=== PATIENT | female | born 2005 | race Caucasian/White ===

== ENCOUNTER 2024-10-03 18:18 | Emergency (ER) | payer BC, SELFPAY ==
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
--- OUTSIDE RECORDS SUMMARY | 2024-10-03 18:20 | XMS_ITS | Encounter Summary ---
Author Organization [facility] Address [address] [place] [address] Phone Care Team Providers Care Air Bag Buffer Name Role Phone Ryne Quigley MD Primary Care Provider Encounter Details Date Type Department Care Team (Late st Contact Info) Description 01/25/2017 Orders Only [facility] [address] [place] [address] Ryne Quigley MD [address] [address] Right wrist injury, initial encounter (Primary Dx) Social History Tobacco Use Types Packs/Day Years Used Date Smoking Tobacco: Never Assessed Comments Unknown Sex and Gender Information Value Date Recorded Sex Assigned at Not on file Legal Sex Female 8:10 AM COUNTER WEIGHER Gender Identity Not on file Sexual Orientation Not on file documented as of this encounter Plan of Treatment Not on file documented as of this encounter Results * XR Wrist Right 3+ View (01/25/2017 3:50 PM CDT) Anatomical Region Laterality Modality Upper Extremities, Wrist Right Compute d Radiography Narrative 01/27/2017 2:53 PM CDT DIGITAL RIGHT WRIST Examination of the right wrist demonstrates normal alignment of the radiocarpal and carpal-metacarpal joints. Development is normal. There is no radiographic evidence of opaque foreign body, erosive process fracture, destructive process or significant arthritic changes. If clinical symptoms persist or chirinos, then follow-up x-ray in 7-10 days is suggested to exclude an occult fracture. Epiphyseal plates are grossly intact. IMPRESSION No radiographic evidence or bone or joint disease. us Ryne Quigley MD IMG XR PROCEDURES Final Resu lt documented in this encounter Visit Diagnoses Diagnosis Right wrist injury, initial encounter- Primary Right wrist injury, initial encounter documented in this encounter Additional Health Concerns Infection Onset Date Last Indicated Resolved Time COVID: Suspected 07/16/2024 07/16/2024 07/16/2024 12:53 PM COUNTER WEIGHER COVID: Suspected 08/26/2024 08/26/2024 08/26/2024 12:39 PM COUNTER WEIGHER Influenza, adult 08/26/2024 08/26/2024 09/02/2024 3:05 AM CDT documented as of this encounter Care Teams Air Bag Buffer Relationship Specialty Start Date End Date Ryne Quigley MD [address] [place] [id number] PCP - General 09/18/16 documented as of this encounter
--- OUTSIDE RECORDS SUMMARY | 2024-10-03 18:20 | XMS_ITS | Encounter Summary ---
Author Organization [facility] Address [address] [place] [address] Care Team Providers Care Electrical Appliance Repairer Name Role Phone Ryne Quigley MD Primary Care Provider Encounter Details Date Type Department Care Team (Late st Contact Info) Description 07/17/[address] [address] Yudy Sweet RN Social History Tobacco Use Types Packs/Day Years Used Date Smoking Tobacco: Never Smokeless Tobacco: Never Alcohol Use Standard Drinks/Week Comments No 0 (1 standard drink = 0.6 oz pur e alcohol) Comments No Sex and Gender Information Value Date Recorded Sex Assigned at Not on file Legal Sex Female 8:10 AM ENGRAVER PICTURE Gender Identity Not on file Sexual Orientation Not on file Occupation Industry Job Start Date Job End Date Student - [employer]. Not on file Not o n file Not on file documented as of this encounter Plan of Treatment Not on file documented as of this encounter Visit Diagnoses Not on filedocumented in this encounter Additional Health Concerns Infection Onset Date Last Indicated Resolved Time COVID: Suspected 07/16/2024 07/16/2024 07/16/2024 12:53 PM ENGRAVER PICTURE COVID: Suspected 08/26/2024 08/26/2024 08/26/2024 12:39 PM ENGRAVER PICTURE Influenza, adult 08/26/2024 08/26/2024 09/02/2024 3:05 AM CDT documented as of this encounter Care Teams Electrical Appliance Repairer Relationship Specialty Start Date End Date Ryne Quigley MD [address] [place] [address] PCP - General 09/18/16 documented as of this encounter
--- OUTSIDE RECORDS SUMMARY | 2024-10-03 18:20 | XMS_ITS | Clinical Summary ---
Author Organization [facility] [employer] Address [address] [place] [address] Care Team Providers Care Drapery Hemmer Automatic Name Role Phone Ryne Quigley MD Primary Care Provider [phone] Source Comments [facility],non-owned Affiliates and Associated Physician Practices is amultiple site organization consisting of ambulatory clinics and hospital sitesin [place], [place], [place] and [place]. This disclosure is being madepursuant to the Care Everywhere program and may not contain all information available regarding this patient. Last updated 18.[facility] [employer] Allergies Active Allergy Reactions Criticality Noted Date Comments Amoxicillin 06/05/2016 Penicillins Urticaria Medium 06/05/2016 Medications * This document contains information received from the source organization and may not represent a complete record from that organization. * Be aware that medications may not be up to date on this document. Alwaysverify current medications with the patient. Norethin Ryan-Eth Estrad-FE (BLISOVI 24 FE PO) Active Family History Relation Name Status Comments Mother Alive Social History Tobacco Use Types Packs/Day Years Used Date Smoking Tobacco: Passive Smo ke Exposure - Never Smoker Smokeless Tobacco: Never Comments No Sex and Gender Information Value Date Recorded Sex Assigned at Not on file Legal Sex Female 8:12 AM CLINICAL APPEALS RN Gender Identity Not on file Sexual Orientation Not on file Last Filed Vital Signs Vital Sign Reading Time Taken Comments Blood Pressure 110/70 07/29/2018 4:50 PM CLINICAL APPEALS RN Pulse 107 07/29/2018 4:50 PM CLINICAL APPEALS RN Temperature 37.2 C (98.9 F) 07/29/2018 4:50 PM CLINICAL APPEALS RN Respiratory Rate 16 07/29/2018 4:50 PM CLINICAL APPEALS RN Oxygen Saturation 97% 07/29/2018 4:50 PM CLINICAL APPEALS RN Inhaled Oxygen Concentration - - Weight 56.7 kg (125 lb) 07/29/2018 4:50 PM CLINICAL APPEALS RN Height 162.6 cm (5' 4 ) 07/29/2018 4:50 PM CLINICAL APPEALS RN Body Mass Index 21.46 07/29/2018 4:50 PM CLINICAL APPEALS RN Plan of Treatment Health Maintenance Due Date Last Done Comments HIV SCREENING 2019 HPV VACCINE (1 - 3-dose series) 2019 CHLAMYDIA/GONORRHEA SCREENING 2020 MENINGOCOCCAL (Group B) VACCINE SHARED DECISION-MAKING (1 of 2 - Standard) 2020 HEPATITIS C SCREENING 08/09/2022 DTAP/TDAP/TD VACCINES (1 - Tdap) 2023 HEPATITIS B VACCINE (1 of 3 - 19+ 3-dose series) 2023 COVID-19 VACCINE (1 - 2023-2 5 season) 2024 DEPRESSION SCREENING 06/21/2024 INFLUENZA VACCINE (Season Ended) 2025 04/17/2016, 03/28/2012, 03/30/2011 ZOSTER VACCINE (1 of 2) 2054 HIB VACCINE Aged Out No longer eligi ble based on patient's age to complete this topic MENINGOCOCCAL GROUPS A/C/Y/W VACCINE Aged Out No longer eligible b ased on patient's age to complete this topic PNEUMOCOCCAL VACCINE Aged Out No long er eligible based on patient's age to complete this topic Insurance [employer] LATOSHA Care Teams Drapery Hemmer Automatic Relationship Specialty Start Date End Date Ryne Quigley MD [address] [place] [address] PCP - General Pediatrics 06/05/16
--- OUTSIDE RECORDS SUMMARY | 2024-10-03 18:20 | XMS_ITS | Encounter Summary ---
Author Organization [facility] Address [address] [place] [address] Phone Care Team Providers Care Microcomputer Support Specialist Name Role Phone Ryne Quigley MD Primary Care Provider [phone] Encounter Details Date Type Department Care Team (Late st Contact Info) Description 05/07/2020 Orders Only [facility] [address] [place] [address] Scanning, Provider Social History Tobacco Use Types Packs/Day Years Used Date Smoking Tobacco: Never Smokeless Tobacco: Never Alcohol Use Standard Drinks/Week Comments No 0 (1 standard drink = 0.6 oz pur e alcohol) Comments No Sex and Gender Information Value Date Recorded Sex Assigned at Not on file Legal Sex Female 8:10 AM REMOTE SENSING ENGINEER Gender Identity Not on file Sexual Orientation Not on file Occupation Industry Job Start Date Job End Date Student - [employer]. Not on file Not o n file Not on file documented as of this encounter Plan of Treatment Not on file documented as of this encounter Procedures Procedure Name Priority Date/Time Associated Diagnosis Comments SCAN - LABS 05/07/2020 documented in this encounter Results * SCAN - LABS (05/07/2020) us Provider Scanning Final Result documented in this encounter Visit Diagnoses Not on filedocumented in this encounter Additional Health Concerns Infection Onset Date Last Indicated Resolved Time COVID: Suspected 07/16/2024 07/16/2024 07/16/2024 12:53 PM REMOTE SENSING ENGINEER COVID: Suspected 08/26/2024 08/26/2024 08/26/2024 12:39 PM REMOTE SENSING ENGINEER Influenza, adult 08/26/2024 08/26/2024 09/02/2024 3:05 AM CDT documented as of this encounter Care Teams Microcomputer Support Specialist Relationship Specialty Start Date End Date Ryne Quigley MD [address] [place] [address] PCP - General 09/18/16 documented as of this encounter
--- OUTSIDE RECORDS SUMMARY | 2024-10-03 18:20 | XMS_ITS | Referral Summary ---
Author Organization [facility] [employer] Address [address] [place] [address] Phone Care Team Providers Care Kelp Cutter Name Role Phone Ryne Quigley MD Primary Care Provider [phone] Encounters Date Type Department Care Team Description 08/26/2024 12:15 PM PIPE LAYER HELPER Office Visit [facility] Medical [facility] at [address] [place] [address] Saranya Ervin, NANDA Influenza A (Primary Dx) 07/16/2024 12:30 PM PIPE LAYER HELPER Office Visit [facility] Care at [address] [place] [address] Saranya Ervin, REGIONAL OWNER OPERATOR TRUCK DRIVER Viral URI with cough (Primary Dx) from Last 3 Months Allergies Active Allergy Reactions Criticality Noted Date [...] ordered. Assessment & Plan (07/16/2019 7:25 AM PIPE LAYER HELPER): Patient endorses 20lbs of unitentional weight loss [...] on left ; Rx IV then cefixime. 01-03-20 frequency without pain but blood on toilet paper; bright red genitalia on exam; dip moderate blood; sent for UA and culture and started Keflex: grew out periurethtral apnkaj . 01-30-20 ANGELITO no more abnormal focus on the left; just bladder wall thickening. 02-05-20 frequency, burning & 10,000 to 100,000 col/ml E coli senisitive to everything Keflex Assessment & Plan (07/15/2019 9:40 PM PIPE LAYER HELPER): 13yo otherwise healthy girl here with 2d [...] pelvic US if high concern for TOA Immunizations Immunization Administration Dates Next Due DTaP 5 Pertussis 12/27/2009, 6,02/20/2005,12/12,2004 HPV, Quadrivalent 03/24/2016,01/17/2016 HPV9 07/28/2016 Hep B, Adolescent or Pediatric 02/20/2005,2004,2004 Hib (HbOC) 11/12/2005, 5,2004,10/15 IPV 12/27/2009, 6,2004,10/15 Influenza, Trivalent, IM (MDV) 03/28/2012 Influenza, Trivalent, Preser vative Free, Intramuscular 04/17/2016,03/30/2011 MMR 12/27/2009,08/19/2005 Meningococcal Conjugate (Menveo) 11/28/2021 Meningococcal MCV4P (Menactra) 01/17/2016 Pneumococcal Conjugate 7-Valent 11/13/19 06,02/20/2005,2004,10/15 Tdap 01/17/2016 Varicella 12/27/2009,08/19/2005 Social History Tobacco Use Types Packs/Day Years Used Date Smoking Tobacco: Never Smokeless Tobacco: Never Tobacco Cessation:Counseling Given: Not Answered Alcohol Use Standard Drinks/Week Comments No 0 (1 standard drink = 0.6 oz pur e alcohol) Comments No Sex and Gender Information Value Date Recorded Sex Assigned at Not on file Legal Sex Female 8:10 AM PIPE LAYER HELPER Gender Identity Not on file Sexual Orientation Not on file Occupation Industry Job Start Date Job End Date [employer] Not on file Not on file Not on file Last Filed Vital Signs Vital Sign Reading Time Taken Comments Blood Pressure 114/62 08/26/2024 12:10 PM PIPE LAYER HELPER Pulse 99 08/26/2024 12:10 PM PIPE LAYER HELPER Temperature 37.3 C (99.2 F) 08/26/2024 12:10 PM PIPE LAYER HELPER Respiratory Rate 17 08/26/2024 12:10 PM PIPE LAYER HELPER Oxygen Saturation 99% 08/26/2024 12:10 PM PIPE LAYER HELPER Inhaled Oxygen Concentration - - Weight 65.3 kg (144 lb) 08/26/2024 12:10 PM PIPE LAYER HELPER Height 166.4 cm (5' 5.5 ) 08/26/2024 12:10 PM CS T Body Mass Index 23.6 08/26/2024 12:10 PM PIPE LAYER HELPER Plan of Treatment Not on file Procedures Procedure Name Priority Date/Time Associated Diagnosis Comments POCT RAPID STREP Routine 08/26/2024 12:3 8 PM PIPE LAYER HELPER Influenza A POC INFLUENZA A/B, COVID-19 ANTIGEN Routine 08/26/2024 12:38 PM PIPE LAYER HELPER Influenza A POC INFLUENZA A/B, COVID-19 ANTIGEN Routine 07/16/2024 12:52 PM PIPE LAYER HELPER Viral URI with cough N. GONORRHOEAE/C. TRACHOMATIS AMPLIFICATION Routine 02/15/2023 5:30 AM CDT Screening examination for venereal disease from Last 3 Months or Most Recently Relevant to Health Maintenance Results * (ABNORMAL) POC Influenza A/B, COVID-19 antigen (08/26/2024 12:38 PM PIPE LAYER HELPER) Pathologist [facility] Influenza A Ag, POC Positive(A) Negative [facility] Influenza B Ag, POC Negative Negative [facility] COVID-19 Ag POC Presumptive Negative Presumptive Negative, Invalid [facility] Nasal 08/26/2024 12:3 8 PM PIPE LAYER HELPER us Saranya Ervin REGIONAL OWNER OPERATOR TRUCK DRIVER POINT OF CARE TEST ORDERABLES Final Result Performing Organization Address [facility] de Phone Number [facility] [address] [place] [address] * POCT rapid strep A (08/26/2024 12:38 PM PIPE LAYER HELPER) [facility] Rapid Strep A, POC Negative Negative Swab 08/26/2024 12:3 8 PM PIPE LAYER HELPER us Saranya Ervin REGIONAL OWNER OPERATOR TRUCK DRIVER POINT OF CARE TEST ORDERABLES Final Result * POC Influenza A/B, COVID-19 antigen (07/16/2024 12:52 PM PIPE LAYER HELPER) Influenza A Ag, POC Negative Negative [facility] Influenza B Ag, POC Negative Negative [facility] COVID-19 Ag POC Presumptive Negative Presumptive Negative, Invalid [facility] Nasal 07/16/2024 12:5 2 PM PIPE LAYER HELPER us Saranya Ervin REGIONAL OWNER OPERATOR TRUCK DRIVER POINT OF CARE TEST ORDERABLES Final Result Performing Organization Address [facility] Co de Phone Number [facility] [address] [place] [address], [facility] * N. gonorrhoeae/C. trachomatis Amplification Urine (02/15/2023 5:30 AM CDT) C. trachomatis source Urine CERNER C. trachomatis RNA Negative Negative [facility] Comment: ADDITIONAL INFORMATION This report is intended for use in clinical monitoring and management of patients. It is not intended for use in medical-legal applications. N. gonorrhoeae source Urine CERNER N. gonorrhoeae RNA Negative Negative [facility] Comment: ADDITIONAL INFORMATION This report is intended for use in clinical monitoring and management of patients. It is not intended for use in medical-legal applications. Test Performed by: [facility] [place] [address] [employer] Representatives: Tom Piedra M.D. Ph.D.; IA# [id number] Urine (None) 02/15/2023 5:30 AM CDT 02/15/2023 6:31 PM CDT Ev Gary MD LAB MICROBIOLOGY - NERNJ ORDERABLES Final Result Performing Organization Address City/[facility]/ZIP Co de Phone Number MADHU [address] [address]redondo Department of Laboratories [place] [address] from Last 3 Months or Most Recently Relevant to Health Maintenance Insurance BLUE [facility] CHOICE OOS [facility] OOS [employer] [facility] ANTHEM ACCESS ANTHEM ACCESS BLUE ACCESS OOS ANTHEM ACCESS ANTHEM ACCESS Advance Directives For more information, please contact: [phone] * Full Code (Latest Code Status on File) Date Activated Date Inactivated Comments 07/15/2019 6:27 PM 07/17/2019 7:31 PM Care Teams Kelp Cutter Relationship Specialty Start Date End Date Ryne Quigley MD [address] [place], [place] [id number] PCP - General 09/18/16
[2024-10-03 18:25] VITALS: BP 134/76; PULSE 82; RESP 20; TEMP 36.5; O2SAT 98
--- NOTE | 2024-10-03 19:06 | ED.SKABFB ---
HPI - Skin/Abscess/Foreign Bdy General Chief complaint: Skin/Abscess/Foreign Body Stated complaint: poss tick in left leg Time Seen by Provider: 10/03/24 19:06 Source: patient, family, RN notes reviewed and old records reviewed Mode of arrival: ambulatory Limitations: no limitations History of Present Illness HPI narrative: 19 year old female with complaints of tick bite to the area behind her left knee noticed today. She reports that she thought she had a scab on the backe of her left knee last night but noted the tick today. Mother reports that she tried to pull it out but part is remaining in the area. Patient reports no fevers or any body aches. MD complaint: other (tick bite) Onset (ago): day(s) (yesterday evening thought was scab then noted tick today) Location: LLE (behind knee) Severity scale (1-10): 1 Quality: aching Treatments prior to arrival: other (attempted to pull out part remains) Related Data Allergies Allergy/AdvReac Type Severity Reaction Status Date / Time Penicillins Allergy Mild Rash Verified 10/03/24 18:32 amoxicillin Allergy Unknown Rash Verified 10/03/24 18:32 Review of Systems Review of Systems: CONSTITUTIONAL: Denies fever, chills, or sweats. CARDIOVASCULAR: Denies chest pain, palpitations, or edema. RESPIRATORY: Denies cough or dyspnea. SKIN: Reports portion of tick remaining in the back of her left knee with some redness and swelling of area MUSCULOSKELETAL: Denies joint pain or myalgia. NEUROLOGIC: Denies headache, numbness, or weakness. All systems reviewed & are unremarkable except as noted in HPI and below PMFSH Past Medical History Medical History (Updated 10/05/24 @ 12:28 by Sarahi Vázquez NP) Pneumonia as Social History Social History (Updated 10/05/24 @ 12:18 by Sarahi Vázquez NP) Living arrangements: with family Gender identity (if verbalized by the patient): Female Comments At time of signature, agree with nursing past medical, surgical, social and family history. There is no relevant family history pertinent to the presenting complaint Exam Narrative: GENERAL: Well-appearing, well-nourished, and in no acute distress. HEAD: Normocephalic, atraumatic. EYES: PERRLA, conjunctivae clear, and EOMI. ENT: Mucous membranes moist. Oropharynx without edema, erythema or lesions. NECK: Supple. No lymphadenopathy CHEST: Clear to auscultation. No respiratory distress.SAO2 98% on room air HEART: Regular rate and rhythm. SKIN: Warm, dry.? small red area where imbedded tick removed 0.1cm area, no drainage see procedure note NEURO:? Alert and oriented x3. PSYCH: Normal mood and affect Course Course Emergency Course: Patient is aware of diagnosis, understands and agrees to treatment plan.? Anticipatory guidance given.? Patient agrees to follow-up as directed and is aware of reasons to seek care at the emergency department. Portions of this record may have been created with voice recognition software Level of Care: Express Care Visit Vital Signs Vital signs: Vital Signs Temperature 36.5 C 10/03/24 18:25 Pulse Rate 82 10/03/24 18:25 Respiratory Rate 20 10/03/24 18:25 Blood Pressure 134/76 10/03/24 18:25 Pulse Oximetry 98 10/03/24 18:25 Oxygen Delivery Room Air 10/03/24 18:25 Temperature 36.5 C 10/03/24 18:25 Pulse Rate 82 10/03/24 18:25 Respiratory Rate 20 10/03/24 18:25 Blood Pressure 134/76 10/03/24 18:25 Pulse Oximetry 98 10/03/24 18:25 Oxygen Delivery Room Air 10/03/24 18:25 Reviewed Procedures Other Procedure Procedure 1: Other Procedure: 1919 area behind left knee cleansed with Hibiclens wipes and using sterile needle and sterile tweezer remaining part of tick removed from area, cleansed again with Hibiclens wipe and band-aide applied to site with post care reviewed and anticipatory guidance. MDM - Skin/Abscess/Foreign Bdy MDM Narrative Medical decision making narrative: Does not appear at this time to be erythema multiforme, bullous, SJS, TEN; no evidence at this time to suggest RMSF, endocarditis or Lyme disease; patient looks well, nontoxic and is tolerating oral intake; no neurologic signs or symptoms; no headache, photophobia or neck pain; afebrile; appropriate for initial outpatient treatment; discussed the importance of follow-up, patient agrees; question, viral exanthema, contact dermatitis, allergic dermatitis, eczema, urticaria. No soft palate or uvula edema, no tongue, lip edema or other mucosal involvement, no respiratory compromise, no stridor, no wheezing, no wheezing, no history of syncope, no hypotension, no nausea, vomiting, or diarrhea.? Instructed patient to go to nearest ER immediately for any worsening symptoms including but not limited to: fever, spreading rash, pain, sore throat, headache, dizziness, chest pain, trouble breathing, or any symptoms concerning to the patient. Differential Diagnosis Differential diagnosis: Likely insect bites (tick, imbedded tick, removal of remaining portion of tick) and contact dermatitis Medical Records Attestation: I reviewed the patient's medical records. Critical Care Time Critical Care Time Critical Care Time: No Discharge Plan Discharge Clinical Impression: Tick bite with subsequent removal of tick Tick bite Qualifiers: Encounter type: initial encounter Site of tick bite: thigh Laterality: left Qualified Code(s): S70.362A - Insect bite (nonvenomous), left thigh, initial encounter; W57.XXXA - Bitten or stung by nonvenomous insect and other nonvenomous arthropods, initial encounter Patient Disposition: Home Condition: Stable Instructions: Antibiotic Form, Tick Bite (ED) Additional Instructions: Cleanse site with alcohol or or Hibiclens soap twice daily watch for increasing infection--redness, swelling, drainage Tylenol or ibuprofen for any fever follow up with PCP in 7-10 days for a wound check recheck if develop fever, chills, increasing symptom Go to the ER if your symptoms become worse of if ANY new symptoms develop Doxycycline 200 mg 1 time prophylactic dose Watch for any fever muscle hagen or muscle aches or bulls eye rash If your symptoms persist, change or worsen significantly before you can contact your personal physician then please, without delay, go to the emergency department for further evaluation. Follow-up with PCP in 7-10 days or sooner if needed Follow up with PCP soon in regards to your blood pressure which is elevated above threshold for referral. Blood pressure above 120/80 may indicate pre-hypertension. Patient Language: Belgian Prescriptions: New doxycycline monohydrate 100 mg capsule 200 mg PO DAILY Qty: 2 0RF Rx Instructions: 1 time dose Follow-up/Referrals: Sai Hernandez MD [Primary Care Provider] - Time of Disposition: 19:43 Quality Lenore Coma Scale Eyes: Open Verbal: Oriented and Alert Motor: Follows Commands [place] Coma Total Score: 15
== END 2024-10-03 19:47 | disposition home or self-care (01) ==
PROVIDERS: Emergency Provider Registered Nurse; PCP Family Medicine
DX: S70.362A Insect bite (nonvenomous), left thigh, initial encounter (principal); W57.XXXA Bitten or stung by nonvenomous insect and other nonvenomous arthropods, initial encounter
CPT/HCPCS: 99203; G0463

== ENCOUNTER 2025-02-20 15:17 | Emergency (ER) | payer BC, SELFPAY ==
--- OUTSIDE RECORDS SUMMARY | 2025-02-20 15:25 | XMS_ITS | Clinical Summary ---
Author Organization [facility] [email or web address] Address [address] [place] [address] Care Team Providers Care Recorder Of Deeds Name Role Phone Ryne Quigley MD Primary Care Provider Source Comments [facility],non-owned Affiliates and Associated Physician Practices is amultiple site organization consisting of ambulatory clinics and hospital sitesin [place], [place], [place] and [place]. This disclosure is being madepursuant to the Care Everywhere program and may not contain all information available regarding this patient. Last updated 18.[facility] [email or web address] Allergies Active Allergy Reactions Criticality Noted Date [...] on file Legal Sex Female 8:12 AM MEDICAL BILL PROCESSOR Gender Identity Not on file Sexual Orientation Not on file Last Filed Vital Signs Vital Sign Reading Time Taken Comments Blood Pressure 110/70 07/29/2018 4:50 PM MEDICAL BILL PROCESSOR Pulse 107 07/29/2018 4:50 PM MEDICAL BILL PROCESSOR Temperature 37.2 C (98.9 F) 07/29/2018 4:50 PM MEDICAL BILL PROCESSOR Respiratory Rate 16 07/29/2018 4:50 PM MEDICAL BILL PROCESSOR Oxygen Saturation 97% 07/29/2018 4:50 PM MEDICAL BILL PROCESSOR Inhaled Oxygen Concentration - - Weight 56.7 kg (125 lb) 07/29/2018 4:50 PM MEDICAL BILL PROCESSOR Height 162.6 cm (5' 4) 07/29/2018 4:50 PM MEDICAL BILL PROCESSOR Body Mass Index 21.46 07/29/2018 4:50 PM MEDICAL BILL PROCESSOR Plan of Treatment Health Maintenance Due Date [...] season) 2024 DEPRESSION SCREENING 06/21/2024 INFLUENZA VACCINE (#1) 2025 6, 03/28/2012, 03/30/2011 ZOSTER VACCINE (1 of 2) 2054 HIB VACCINE Aged Out No longer eligi ble based on patient's age to complete this topic MENINGOCOCCAL GROUPS A/C/Y/W VACCINE Aged Out No longer eligible b ased on patient's age to complete this topic PNEUMOCOCCAL VACCINE Aged Out No long er eligible based on patient's age to complete this topic Insurance CELESTE CELESTE Care Teams Recorder Of Deeds Relationship Specialty Start Date End Date Ryne Quigley MD [address] [place] [address] PCP - General Pediatrics 06/05/16
--- OUTSIDE RECORDS SUMMARY | 2025-02-20 15:25 | XMS_ITS | Encounter Summary ---
Author Organization [facility] Address [address] [place] [address] Care Team Providers Care Loan Services Professional Name Role Phone Ryne Quigley MD Primary Care Provider [phone] Encounter Details Date Type Department Care Team (Late st Contact Info) Description 07/17/[address] [address] Yudy Sweet RN Social History Tobacco Use Types Packs/Day Years Used Date Smoking Tobacco: Never Smokeless Tobacco: Never Alcohol Use Standard Drinks/Week Comments No 0 (1 standard drink = 0.6 oz pur e alcohol) Comments No Sex and Gender Information Value Date Recorded Sex Assigned at Not on file Legal Sex Female 8:10 AM AIRCRAFT RIGGING AND CONTROLS MECHANIC Gender Identity Not on file Sexual Orientation Not on file Occupation Industry Job Start Date Job End Date Student - [employer]. Not on file Not o n file Not on file documented as of this encounter Plan of Treatment Not on file documented as of this encounter Visit Diagnoses Not on filedocumented in this encounter Additional Health Concerns Infection Onset Date Last Indicated Resolved Time COVID: Suspected 07/16/2024 07/16/2024 07/16/2024 12:53 PM AIRCRAFT RIGGING AND CONTROLS MECHANIC COVID: Suspected 08/26/2024 08/26/2024 08/26/2024 12:39 PM AIRCRAFT RIGGING AND CONTROLS MECHANIC Influenza, adult 08/26/2024 08/26/2024 09/02/2024 3:05 AM CDT documented as of this encounter Care Teams Loan Services Professional Relationship Specialty Start Date End Date Ryne Quigley MD [address] [place] [address] PCP - General 09/18/16 documented as of this encounter
--- OUTSIDE RECORDS SUMMARY | 2025-02-20 15:25 | XMS_ITS | Encounter Summary ---
Author Organization [facility] Address [address] [place] [address] Phone Care Team Providers Care Wax Bleacher Name Role Phone Ryne Quigley MD Primary Care Provider [phone] Encounter Details Date Type Department Care Team (Late st Contact Info) Description 05/07/2020 Orders Only [facility] [address] [place] [address] Scanning, Provider Social History Tobacco Use Types Packs/Day Years Used Date Smoking Tobacco: Never Smokeless Tobacco: Never Alcohol Use Standard Drinks/Week Comments No 0 (1 standard drink = 0.6 oz pur e alcohol) Comments No Sex and Gender Information Value Date Recorded Sex Assigned at Not on file Legal Sex Female 8:10 AM RECYCLING COLLECTIONS DRIVER Gender Identity Not on file Sexual Orientation Not on file Occupation Industry Job Start Date Job End Date Student - [employer]. Not on file Not o n [...] COVID: Suspected 07/16/2024 07/16/2024 07/16/2024 12:53 PM RECYCLING COLLECTIONS DRIVER COVID: Suspected 08/26/2024 08/26/2024 08/26/2024 12:39 PM RECYCLING COLLECTIONS DRIVER Influenza, adult 08/26/2024 08/26/2024 09/02/2024 3:05 AM CDT documented as of this encounter Care Teams Wax Bleacher Relationship Specialty Start Date End Date Ryne Quigley MD [address] [place] [address] PCP - General 09/18/16 documented as of this encounter
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
[2025-02-20 15:28] VITALS: BP 113/78; PULSE 60; RESP 16; TEMP 36.6; O2SAT 100
--- NOTE | 2025-02-20 15:40 | ED_ITS ---
HPI - Skin/Abscess/Foreign Bdy General Chief complaint: Skin/Abscess/Foreign Body Stated complaint: Check tick removed waistline Time Seen by Provider: 02/20/25 15:30 Source: patient Mode of arrival: ambulatory Limitations: no limitations History of Present Illness HPI narrative: Joy is a 19-year-old female patient presenting to the clinic today with complaints a tick bite to the left lateral hip region. Pulled a tick off her left hip on Wednesday and is unsure if she removed all the tick. Has a small area there is dark in the center and a red circular rash around it. Denies any fevers, chills, headache, or body aches. Related Data Allergies Allergy/AdvReac Type Severity Reaction Status Date / Time Penicillins Allergy Mild Rash Verified 02/20/25 15:37 amoxicillin Allergy Unknown Rash Verified 02/20/25 15:37 Review of Systems Review of Systems: Pertinent positives per HPI. Patient denies any fever, chills, rash, headache, visual changes, dizziness, cough, runny nose, sore throat, shortness of breath, chest pain, palpitations, nausea, vomiting, diarrhea, constipation, abdominal pain, or any urinary issues. [facility] Past Medical History Medical History Pneumonia as infant Social History Social History Living arrangements: with family Gender identity (if verbalized by the patient): Female Comments At the time of my signature, I reviewed and agree with the nursing past medical, surgical, social, and family history. There is no relevant family history pertinent to the patient complaint. Exam Narrative: General: Well-developed, well nourished, in no apparent distress Head: Normocephalic, atraumatic. Cardio: Regular rate and rhythm, s1 and s2 normal, no murmur appreciated. Resp: Clear to auscultation bilaterally, no rhonchi, rales, wheezing or rubs. Integumentary: [place], warm, and dry, mandible tick remnants in the skin of the left lateral hip. Area was cleansed with alcohol and a 23 gauge needle was used to remove mandible. Patient tolerated well. Triple antibiotic ointment and Band-Aid was applied. Course Course Emergency Course: Portions of this record may have been created with voice recognition software. Level of Care: Express Care Visit Vital Signs Vital signs: Vital Signs Temperature 36.6 C 02/20/25 15:28 Pulse Rate 60 02/20/25 15:28 Respiratory Rate 16 02/20/25 15:28 Blood Pressure 113/78 02/20/25 15:28 Pulse Oximetry 100 02/20/25 15:28 Oxygen Delivery Room Air 02/20/25 15:28 Temperature 36.6 C 02/20/25 15:28 Pulse Rate 60 02/20/25 15:28 Respiratory Rate 16 02/20/25 15:28 Blood Pressure 113/78 02/20/25 15:28 Pulse Oximetry 100 02/20/25 15:28 Oxygen Delivery Room Air 02/20/25 15:28 Vital signs reviewed MDM - Skin/Abscess/Foreign Bdy MDM Narrative Medical decision making narrative: At the time of visit patient is resting comfortably on the exam table. Patient appears to be nontoxic. Complaints a tick bite to the left lateral hip region. Pulled a tick off her left hip on Wednesday and is unsure if she removed all the tick. Has a small area there is dark in the center and a red circular rash around it. Denies any fevers, chills, headache, or body aches. Procedures: Area was cleansed with alcohol and a 23 gauge needle was used to remove mandible. Patient tolerated well. Triple antibiotic ointment and Band- Aid was applied. Plan: Tick bite with room in its to the skin. Removed in the clinic today. Prescription for prophylactic dose of doxycycline was sent to the pharmacy. Supportive measures were discussed with the patient and they voiced understanding discharge instructions and agrees to treatment plan. Return precautions reviewed Discharge Plan Discharge Clinical Impression: Tick bite Patient Disposition: Home Condition: Stable Instructions: Antibiotic Form, Tick Bite (ED) Additional Instructions: Tick remnants was removed from the skin of the left lateral hip Take doxycycline as prescribed Keep area clean and dry. Watch for signs and symptoms of infection- redness, streaking, swelling, purulent discharge, or increase in pain. Follow up with your PCP as needed Patient Language: Marshallese Prescriptions: New doxycycline monohydrate 100 mg capsule 200 mg PO DAILY 1 Days Qty: 2 0RF Follow-up/Referrals: PHYSICIAN,PATIENT ADMITTING CLERK [Primary Care Provider, Internal Medicine] Time of Disposition: 15:42 Quality NIHSS Nursing Documentation ED NIHSS nursing documentation: reviewed/agree
== END 2025-02-20 15:43 | disposition home or self-care (01) ==
PROVIDERS: Emergency Provider Nurse Practitioner Family
DX: S70.262A Insect bite (nonvenomous), left hip, initial encounter (principal); W57.XXXA Bitten or stung by nonvenomous insect and other nonvenomous arthropods, initial encounter
CPT/HCPCS: 99213; G0463

== ENCOUNTER 2025-02-28 15:25 | Outpatient (CLI) | payer BC, SELFPAY ==
--- OUTSIDE RECORDS SUMMARY | 2025-02-28 15:48 | XMS_ITS | Encounter Summary ---
Author Organization [facility] Address [address] [place] [address] Phone Care Team Providers Care Medical Insurance Verifier Name Role Phone Ryne Quigley MD Primary Care Provider [phone] Encounter Details Date Type Department Care Team (Late st Contact Info) Description 01/25/2017 Orders Only [facility] [address] [email or web address] [address] Ryne Quigley MD [address] [address] Right wrist injury, initial encounter (Primary Dx) Social History Tobacco Use Types Packs/Day Years Used Date Smoking Tobacco: Never Assessed Comments Unknown Sex and Gender Information Value Date Recorded Sex Assigned at Not on file Legal Sex Female 8:10 AM PARACHUTE OFFICER Gender Identity Not on file Sexual Orientation [...] COVID: Suspected 07/16/2024 07/16/2024 07/16/2024 12:53 PM PARACHUTE OFFICER COVID: Suspected 08/26/2024 08/26/2024 08/26/2024 12:39 PM PARACHUTE OFFICER Influenza, adult 08/26/2024 08/26/2024 09/02/2024 3:05 AM CDT documented as of this encounter Care Teams Medical Insurance Verifier Relationship Specialty Start Date End Date Ryne Quigley MD [address] [place] [id number] PCP - General 09/18/16 documented as of this encounter
--- OUTSIDE RECORDS SUMMARY | 2025-02-28 15:48 | XMS_ITS | Encounter Summary ---
Author Organization [facility] Address [address] [place] [address] Phone Care Team Providers Care Highway Engineering Technician Name Role Phone Ryne Quigley MD Primary Care Provider [phone] Encounter Details Date Type Department Care Team (Late st Contact Info) Description 05/07/2020 Orders Only [facility] [address] [address] Scanning, Provider Social History Tobacco Use Types Packs/Day Years Used Date Smoking Tobacco: Never Smokeless Tobacco: Never Alcohol Use Standard Drinks/Week Comments No 0 (1 standard drink = 0.6 oz pur e alcohol) Comments No Sex and Gender Information Value Date Recorded Sex Assigned at Not on file Legal Sex Female 8:10 AM OPTICAL EFFECTS CAMERA OPERATOR Gender Identity Not on file Sexual Orientation Not on file Occupation Industry Job Start Date Job End Date Student - [employer]. Not on file Not o n [...] COVID: Suspected 07/16/2024 07/16/2024 07/16/2024 12:53 PM OPTICAL EFFECTS CAMERA OPERATOR COVID: Suspected 08/26/2024 08/26/2024 08/26/2024 12:39 PM OPTICAL EFFECTS CAMERA OPERATOR Influenza, adult 08/26/2024 08/26/2024 09/02/2024 3:05 AM CDT documented as of this encounter Care Teams Highway Engineering Technician Relationship Specialty Start Date End Date Ryne Quigley MD [address] [place] [address] PCP - General 09/18/16 documented as of this encounter
--- OUTSIDE RECORDS SUMMARY | 2025-02-28 15:48 | XMS_ITS | Encounter Summary ---
Author Organization [facility] Address [address] [place] [address] Care Team Providers Care Courtroom Clerk Name Role Phone Ryne Quigley MD Primary Care Provider [phone] Encounter Details Date Type Department Care Team (Late st Contact Info) Description 07/17/[address] [address] Yudy Sweet RN Social History Tobacco Use Types Packs/Day Years Used Date Smoking Tobacco: Never Smokeless Tobacco: Never Alcohol Use Standard Drinks/Week Comments No 0 (1 standard drink = 0.6 oz pur e alcohol) Comments No Sex and Gender Information Value Date Recorded Sex Assigned at Not on file Legal Sex Female 8:10 AM COOK HELPER FRUIT Gender Identity Not on file Sexual Orientation Not on file Occupation Industry Job Start Date Job End Date Student - [employer]. Not on file Not o n file Not on file documented as of this encounter Plan of Treatment Not on file documented as of this encounter Visit Diagnoses Not on filedocumented in this encounter Additional Health Concerns Infection Onset Date Last Indicated Resolved Time COVID: Suspected 07/16/2024 07/16/2024 07/16/2024 12:53 PM COOK HELPER FRUIT COVID: Suspected 08/26/2024 08/26/2024 08/26/2024 12:39 PM COOK HELPER FRUIT Influenza, adult 08/26/2024 08/26/2024 09/02/2024 3:05 AM CDT documented as of this encounter Care Teams Courtroom Clerk Relationship Specialty Start Date End Date Ryne Quigley MD [address] [place] [id number] PCP - General 09/18/16 documented as of this encounter
--- OUTSIDE RECORDS SUMMARY | 2025-02-28 15:48 | XMS_ITS | Clinical Summary ---
Author Organization [facility] [address] Address [address] [place] [address] Phone Care Team Providers Care Ship'S Cook Name Role Phone Ryne Quigley MD Primary Care Provider [phone] Allergies Active Allergy Reactions Criticality Noted Date [...] ordered. Assessment & Plan (07/16/2019 7:25 AM IRRADIATED FUEL HANDLER): Patient endorses 20lbs of unitentional weight loss [...] Keflex Assessment & Plan (07/15/2019 9:40 PM IRRADIATED FUEL HANDLER): 13yo otherwise healthy girl here with 2d [...] on file Legal Sex Female 8:10 AM IRRADIATED FUEL HANDLER Gender Identity Not on file Sexual Orientation Not on file Occupation Industry Job Start Date Job End Date [employer] Not on file Not on [...] Comments Blood Pressure 114/62 08/26/2024 12:10 PM IRRADIATED FUEL HANDLER Pulse 99 08/26/2024 12:10 PM IRRADIATED FUEL HANDLER Temperature 37.3 C (99.2 F) 08/26/2024 12:10 PM IRRADIATED FUEL HANDLER Respiratory Rate 17 08/26/2024 12:10 PM IRRADIATED FUEL HANDLER Oxygen Saturation 99% 08/26/2024 12:10 PM IRRADIATED FUEL HANDLER Inhaled Oxygen Concentration - - Weight 65.3 kg (144 lb) 08/26/2024 12:10 PM IRRADIATED FUEL HANDLER Height 166.4 cm (5' 5.5) 08/26/2024 12:10 PM CS T Body Mass Index 23.6 08/26/2024 12:10 PM IRRADIATED FUEL HANDLER Plan of Treatment Health Maintenance Due Date [...] Amplification Urine (02/15/2023 5:30 AM CDT) Pathologist [facility] C. trachomatis source Urine [facility] C. trachomatis RNA Negative Negative [facility] Comment: ADDITIONAL INFORMATION This report is intended for use in clinical monitoring and management of patients. It is not intended for use in medical-legal applications. N. gonorrhoeae source Urine [facility] N. gonorrhoeae RNA Negative Negative [facility] Comment: ADDITIONAL INFORMATION This report is intended for use in clinical monitoring and management of patients. It is not intended for use in medical-legal applications. Test Performed by: [facility] [address] [place] [address] Gospel Worker: Tom Piedra M.D. Ph.D.; CLIA# [id number] Urine (None) 02/15/2023 5:30 AM CDT 02/15/2023 6:31 PM CDT Ev Gary MD LAB MICROBIOLOGY - N[place]AL [place] [id number] Nick Arredondo Department [place] [address] from Last 3 Months or Most Recently Relevant to Health Maintenance Insurance Network [employer] [place] [facility] ACCESS ANTHEM ACCESS BLUE ACCESS [employer] ACCESS ANTHEM ACCESS Advance Directives For more information, please contact: [phone] * Full Code (Latest Code Status on File) Date Activated Date Inactivated Comments 07/15/2019 6:27 PM 07/17/2019 7:31 PM Care Teams Ship'S Cook Relationship Specialty Start Date End Date Ryne Quigley MD [address] [place] [address] PCP - General 09/18/16
--- OUTSIDE RECORDS SUMMARY | 2025-02-28 15:48 | XMS_ITS | Clinical Summary ---
Author Organization [facility] Address [address] [place] [address] Care Team Providers Care Air Tucker Name Role Phone Ryne Quigley MD Primary Care Provider Source Comments [facility],non-owned Affiliates and Associated Physician Practices is amultiple site organization consisting of ambulatory clinics and hospital sitesin [place], [place], [place] and [place]. This disclosure is being madepursuant to the Care Everywhere program and may not contain all information available regarding this patient. Last updated 18.[facility] Allergies Active Allergy Reactions Criticality Noted Date [...] on file Legal Sex Female 8:12 AM INSIDE WIRER Gender Identity Not on file Sexual Orientation Not on file Last Filed Vital Signs Vital Sign Reading Time Taken Comments Blood Pressure 110/70 07/29/2018 4:50 PM INSIDE WIRER Pulse 107 07/29/2018 4:50 PM INSIDE WIRER Temperature 37.2 C (98.9 F) 07/29/2018 4:50 PM INSIDE WIRER Respiratory Rate 16 07/29/2018 4:50 PM INSIDE WIRER Oxygen Saturation 97% 07/29/2018 4:50 PM INSIDE WIRER Inhaled Oxygen Concentration - - Weight 56.7 kg (125 lb) 07/29/2018 4:50 PM INSIDE WIRER Height 162.6 cm (5' 4) 07/29/2018 4:50 PM INSIDE WIRER Body Mass Index 21.46 07/29/2018 4:50 PM INSIDE WIRER Plan of Treatment Health Maintenance Due Date Last Done Comments HIV SCREENING 2019 HPV VACCINE (1 - 3-dose series) 2019 CHLAMYDIA/GONORRHEA SCREENING 2020 MENINGOCOCCAL (Group B) VACCINE SHARED DECISION-MAKING (1 of 2 - Standard) 2020 HEPATITIS C SCREENING 08/09/2022 DTAP/TDAP/TD VACCINES (1 - Tdap) 2023 HEPATITIS B VACCINE (1 of 3 - 19+ 3-dose series) 2023 DEPRESSION SCREENING 06/21/2024 COVID-19 VACCINE (1 - 2023-2 5 season) 2025 INFLUENZA VACCINE (#1) 2025 6, 03/28/2012, 03/30/2011 [...] this topic Insurance CELESTE CELESTE Care Teams Air Tucker Relationship Specialty Start Date End Date Ryne Quigley MD [address] [place] [address] PCP - General Pediatrics 06/05/16
[2025-02-28 16:18] LABS: Hematocrit 40.3 % (37.0-47.0); Hemoglobin 13.8 g/dL (12.0-15.0); Immature Granulocyte Percent A 0.3 % (0-0.5); Lymphocytes Absolute Auto 2.81 K/mm3 (0.9-3.2); Mean Corpuscular HGB Conc 34.2 g/dl (32-36); Mean Corpuscular Hemoglobin 32.6 pg (26-34); Mean Corpuscular Volume 95.3 fl (80-100); Nucleated Red Blood Cells Absolute Auto 0.000 K/mm3 (0.0-0.012); Nucleated Red Blood Cells Perc 0.0 % (0.0-0.2); Platelet Count Result 206 k/mm3 (150-375); Red Blood Count 4.23 M/mm3 (4.2-5.4); White Blood Count 6.4 K/mm3 (4.5-10.0)
[2025-02-28 16:53] LABS: Thyroid Stimulating Hormone Reflex 1.530 uIU/mL (0.465-4.68)
[2025-02-28 17:23] LABS: Free T4 Free Thyroxine 1.11 ng/dL (0.78-2.19)
== END 2025-02-28 15:26 | disposition home or self-care (01) ==
LOC: ANHLAB 15:27
PROVIDERS: Visit Provider Obstetrics & Gynecology
DX: N92.6 Irregular menstruation, unspecified (principal)
CPT/HCPCS: 36415; 84146; 84439; 84443; 85025